=== PATIENT | male | born 1955 | race Caucasian/White ===

== ENCOUNTER → 2018-05-12 07:45 | Outpatient (CLI) | payer BC, SELFPAY | DX: N17.9 Acute kidney failure, unspecified (principal) | CPT/HCPCS: 76770 ==

== ENCOUNTER 2018-11-13 09:01 | Inpatient (IN) | payer MEDICARE, BC, SELFPAY ==
[2018-11-13 09:04] VITALS: BP 188/85; RESP 71; TEMP 36.5; O2SAT 18; BMI 48.9
[2018-11-13 09:45] LABS: Absolute Lymphocyte Count 0.76 X10^3/ul (0.83-4.51); Basophil# 0.08 X10^3/uL; Basophil% 0.8 % (0-1); Eosinophil# 0.14 X10^3/uL; Eosinophils% 1.4 % (0-5); Hematocrit 34.5 % (40-54); Lymphocyte # 0.76 X10^3/ul (4.0); Lymphocyte % 7.6 % (19-41); Mean Corp Hgb Conc 31.9 g/gl (32-36); Mean Corpuscular Hgb 29.8 pg (27.0-32.0); Mean Corpuscular Volume 93.5 fL (80-94); Mean Platelet Vol. 9.5 fl (6.2-12.0); Monocyte# 0.97 X10^3/uL; Monocyte% 9.7 % (0-10); Neutrophil # 7.99 X10^3/uL (2.7-7.7); Neutrophil % 80.4 % (47-70); POSITIVE COUNT NO; POSITIVE DIFFERENTIAL NO; POSITIVE MORPHOLOGY NO; Platelet Count 368 K/mm3 (150-450); RBC Distribution Width CV 13.2 % (11.6-14.6); RBC Distribution Width SD 45.1 fl (35.1-43.9); Red Blood Count 3.69 M/mm3 (4.6-6.2)
[2018-11-13 10:00] LABS: ALB/GLOB Ratio 0.6 RATIO (0.9-2.4); AST(SGOT) 13 U/L (15-37); Alanine Aminotransfer ALT/SGPT 14 U/L (16-61); Albumin, Serum 3.1 g/dL (3.2-5.0); Alkaline Phosphatase 104 U/L (45-117); Anion Gap 7 (5-15); BUN 29 mg/dL (7-18); Calcium,Total 8.8 mg/dL (8.5-10.1); Chloride 100 mmol/L (98-107); Creatinine, Serum 1.38 mg/dL (0.70-1.30); EST Glomerular Filtration Rate 55 mL/min (>60); Est Glom Filt Rate - Afr Amer 67 mL/min (>60); Estimated Creatinine Clearance 56.84 ml/min; Globulin 4.8 g/dL (2.2-4.2); Glucose 232 mg/dL (74-106); Potassium 4.5 mmol/L (3.5-5.1); Protein, Total 7.9 g/dL (6.4-8.2); Sodium Level 133 mmol/L (136-145)
--- NOTE | 2018-11-13 10:58 | ED.VISSUMM ---
- ER Visit Summary Date of Service: 11/13/18 Chief Complaint: Lower extremity erythema History of Present Illness: The patient is a 63 M with right lower extremity pain redness and swelling. It got much worse today. He has no fever or chills no streaking. He did hit his leg while falling in the garage about 5-6 days ago. He does not know if he sustained any abrasions or lacerations at that time he does not think so. Pain is mild to moderate. He noticed erythema today. Physical Examination: Morbidly obese male with cellulitis over the lower extremity region anteriorly. There is also a 5 cm spot with induration and fluctuance. No knee involvement no ankle involvement. Emergency Department Course and Treatment: Incision and drainage was done by me, copious amounts of pus were expectorated. I made 2 incisions and connected them, patient will be admitted to the hospital with IV antibiotics. Wound cultures were obtained. Admitted in stable condition Impression: Cellulitis Abscess lower extremity This note was generated with [employer] dictation software. It may contain incorrect words, spelling, and punctuation that were not noted in review of the chart prior to signing ED Disposition - Plan for ED Patient: Referrals: [facility] Doctor,Out of [Primary Care Provider] -
--- NOTE | 2018-11-13 11:03 | ED.DCSUM_ITS ---
- ER Visit Summary Date of Service: 11/13/18 Chief Complaint: Lower extremity erythema History of Present Illness: The patient is a 63 M with right lower extremity pain redness and swelling. It got much worse today. He has no fever or chills no streaking. He did hit his leg while falling in the garage about 5-6 days ago. He does not know if he sustained any abrasions or lacerations at that time he does not think so. Pain is mild to moderate. He noticed erythema today. Physical Examination: Morbidly obese male with cellulitis over the lower extremity region anteriorly. There is also a 5 cm spot with induration and fluctuance. No knee involvement no ankle involvement. Emergency Department Course and Treatment: Incision and drainage was done by me, copious amounts of pus were expectorated. I made 2 incisions and connected them, patient will be admitted to the hospital with IV antibiotics. Wound cultures were obtained. Admitted in stable condition Impression: Cellulitis Abscess lower extremity This note was generated with [employer] dictation software. It may contain incorrect words, spelling, and punctuation that were not noted in review of the chart prior to signing ED Disposition - Plan for ED Patient: Referrals: [facility] Doctor,Out of [Primary Care Provider] -
[2018-11-13 11:08] VITALS: BP 159/88; PULSE 63; RESP 16; O2SAT 97
--- NOTE | 2018-11-13 11:22 | NURSING ---
DR KAILASH JOYNER
--- NOTE | 2018-11-13 11:28 | PCM.HP.STD ---
Problem List (1) DM type 2 (diabetes mellitus, type 2) Status: Chronic (2) Cellulitis and abscess of lower extremity Status: Acute (3) HTN (hypertension) Status: Chronic (4) HLD (hyperlipidemia) Status: Chronic History of Present Illness Date of Admission: 11/13/18 Chief Complaint: Leg cellulitis The patient is a 63 year old M with a PMH as below who presents to the hospital after development of leg abscess and cellulitis on the right. He did hit his leg in the garage about 5-6 days ago and thinks that may be where it started and he initially thought that he had a hematoma. He presented to the ER today because he noticed erythema for the first time. In the ED he was found to be afebrile without a leukocytosis, however he did have a large abscess on his right leg that did not involve any joint. The ED physician was able to incise and drain the location and obtain blood and wound cultures. Past Medical History Past Medical History (Chronic Problems): Chronic Problems DM type 2 (diabetes mellitus, type 2) (Chronic) HTN (hypertension) (Chronic) HLD (hyperlipidemia) (Chronic) Allergies Penicillins [PCN] Adverse Reaction (Verified 11/13/18 09:03) Unknown Home Medications: Ambulatory Orders Medication Instructions Recorded Ascorbic Acid [Vitamin C] 500 mg PO DAILY 11/13/18 Aspirin E.C. [Ecotrin] 81 mg PO DAILY@0800 11/13/18 Calcium Polycarbophil [Fiber Tabs] 625 mg PO 11/13/18 Carvedilol 25 mg PO BID 11/13/18 Diltiazem HCl [Diltiazem ER] 240 mg PO DAILY 11/13/18 Losartan/Hydrochlorothiazide 1 each PO DAILY 11/13/18 [Losartan-Hctz 100-12.5 mg Tab] Magnesium 250 mg PO DAILY 11/13/18 Metformin HCl [Metformin ER 1,000 mg PO BID 11/13/18 Osmotic] Multivitamin [Multiple Vitamins] 1 each PO DAILY 11/13/18 Piaglitazone 30 mg PO DAILY 11/13/18 Pravastatin [Pravachol] 20 mg PO QHS 11/13/18 Zinc 50 mg PO DAILY 11/13/18 Surgical History: - - Right foot resection Smoking Status: Never smoker Alcohol: None Drugs: None - *Family History Maternal History Items: Diabetes Paternal History Items: Heart Disease Review of Systems Constitutional: Denies: Chills, Fever, Weight Change HEENT: Denies: Head Aches, Sinus Congestion, Sinus Drainage Cardiovascular: Denies: Chest Pain, Palpitations Respiratory: Denies: Cough, Shortness of breath at rest, Sputum production Gastrointestinal: Denies: Abdominal Pain, Nausea, Vomiting Genitourinary: Denies: Dysuria Musculoskeletal: Denies: Joint Pain, Joint Tenderness Skin: Reports: Skin Changes, Wounds. Denies: Rash Neurological: Denies: Numbness, Tingling, Focal weakness Psychiatric: Denies: Anxiety, Depression, Homicidal Ideations, Suicidal Ideations Hematologic/ Lymphatic: Denies: Easy Bruising, Easy Bleeding VTE Information - Inpt Only VTE Present on Admission: No Patient Problems: Active and Suspected Problems Cellulitis and abscess of lower extremity (Acute) - Physical Exam General: Alert, Oriented x3, Cooperative, No apparent distress HEENT: Atraumatic, PERRLA, EOMI, Normocephalic Neck: Supple, No JVD, Trachea Midline Lungs: Clear to auscultation, Normal air movement, No rhonchi, No wheeze, No rales Cardiovascular: Regular rate, Regular Rhythm, Normal S1, Normal S2, No murmurs Abdomen: Soft, Non Tender, Non-Distended, No Hepato-splenomegaly, Obese Extremities: No edema, Capillary Refill Less than 3 Seconds Skin: - - Cellulitis of the anterior aspect of his right lower extremity, there is a site of drainage from the ER with a rubber tie to hold the wound open to allow for drainage Neurological: Neuro grossly intact, Sensory exam intact to light touch and pain Psych/Mental Status: Normal Affect, Appropriate Vital Signs Temp Pulse Resp BP Pulse Ox 97.7 F L 63 16 159/88 H 97 11/13/18 09:04 11/13/18 11:08 11/13/18 11:08 11/13/18 11:08 11/13/18 11:08 Oxygen Delivery Method Room Air Weight: 350 lb 12.087 oz Body Mass Index (BMI) 48.9 Laboratory Tests Past 24 Hrs 11/13/18 11/13/18 09:30 09:30 WBC 10.0 RBC 3.69 L Hgb 11.0 L Hct 34.5 L MCV 93.5 MCH 29.8 MCHC 31.9 L RDW 13.2 RDW Differential 45.1 H Plt Count 368 MPV 9.5 Immature Gran % (Auto) 0.100 Neut % (Auto) 80.4 H Lymph % (Auto) 7.6 L Frederick % (Auto) 9.7 Eos % (Auto) 1.4 Baso % (Auto) 0.8 Absolute Neuts (auto) 8.0 H Absolute Lymphs (auto) 0.76 L Total Counted Not Reportable Sodium 133 L Potassium 4.5 Chloride 100 Carbon Dioxide 26.0 Anion Gap 7 BUN 29 H Creatinine 1.38 H Estim Creat Clear Calc 56.84 Est GFR (MDRD) Af Amer 67 Est GFR (MDRD) Non-Af 55 L BUN/Creatinine Ratio 21.0 H Glucose 232 H Calcium 8.8 Total Bilirubin 0.40 AST 13 L ALT 14 L Alkaline Phosphatase 104 Total Protein 7.9 Albumin 3.1 L Globulin 4.8 H Albumin/Globulin Ratio 0.6 L Assessment/Plan All Active Problems Cellulitis and abscess of lower extremity (Acute) 1. Right lower extremity cellulitis with an abscess -Concern for possible MRSA given the fact that there is an abscess -We will await cultures in the meantime initiate doxycycline twice daily to cover both MRSA and strep -Wound care to evaluate patient in the morning 2. DM 2/acute kidney injury -Is on metformin at home which we will hold -Will start with sliding scale insulin and Accu-Cheks -Current creatinine is 1.38, unsure of baseline as his previous creatinine was 1.17, 2 years ago -P.o. intake no IV fluids at the moment 3. HTN/HLD/A. fib status post cardioversion -Currently stable -Continue with home medications -He does have a history of A. fib though he is not on any anticoagulation after he was cardioverted in 2013 DVT: Lovenox and SCDs Code Visit OBSV E&M: 93879 Initial observation care L3
--- NOTE | 2018-11-13 11:29 | NURSING ---
MED SURG CELLULITIS KOTSONIS
[2018-11-13 12:01] VITALS: BMI 48.1
[2018-11-13 12:19] VITALS: BMI 48.2
[2018-11-13 12:31] VITALS: BP 161/84; PULSE 70; RESP 18; TEMP 36.6; O2SAT 99
[2018-11-13 17:02] VITALS: BP 162/88; PULSE 70; RESP 16; TEMP 36.7; O2SAT 99
[2018-11-13] MEDS: Insulin Lispro 100 UNIT/ML INSULN.PEN SQ ×2 (17:06→22:11)
[2018-11-13 17:15] LABS: Bedside Glucose 188 mg/dL (70-110)
[2018-11-13 20:12] VITALS: BP 160/76; PULSE 67; RESP 16; TEMP 36.7; O2SAT 99
[2018-11-13] MEDS: Doxycycline 100 MG CAPSULE PO (22:06)
[2018-11-13] MEDS: Carvedilol 25 MG Tablet PO (22:06)
[2018-11-13] MEDS: Pravastatin 20 MG Tablet PO (22:06)
[2018-11-13 22:51] LABS: Bedside Glucose 151 mg/dL (70-110)
[2018-11-14 03:05] VITALS: BP 137/75; PULSE 63; RESP 12; TEMP 36.4; O2SAT 99
[2018-11-14 06:01] LABS: Absolute Lymphocyte Count 1.04 X10^3/ul (0.83-4.51); Absolute Neutrophil Count 4.8 X10^3/uL (2.0-7.7); Basophil# 0.04 X10^3/uL; Basophil% 0.6 % (0-1); Eosinophil# 0.24 X10^3/uL; Eosinophils% 3.4 % (0-5); Hematocrit 32.1 % (40-54); Hemoglobin 10.2 g/dl (13.0-16.5); Lymphocyte # 1.04 X10^3/ul (4.0); Lymphocyte % 14.8 % (19-41); Mean Corp Hgb Conc 31.8 g/gl (32-36); Mean Corpuscular Hgb 29.7 pg (27.0-32.0); Mean Corpuscular Volume 93.6 fL (80-94); Mean Platelet Vol. 9.4 fl (6.2-12.0); Monocyte# 0.91 X10^3/uL; Monocyte% 12.9 % (0-10); Neutrophil # 4.79 X10^3/uL (2.7-7.7); Platelet Count 352 K/mm3 (150-450); RBC Distribution Width CV 13.3 % (11.6-14.6); RBC Distribution Width SD 45.4 fl (35.1-43.9); Red Blood Count 3.43 M/mm3 (4.6-6.2)
[2018-11-14] MEDS: Insulin Lispro 100 UNIT/ML INSULN.PEN SQ ×2 (06:03→12:06)
[2018-11-14 06:09] LABS: POSITIVE DIFFERENTIAL NO
[2018-11-14 06:17] LABS: Anion Gap 9 (5-15); BUN 25 mg/dL (7-18); BUN/Creat Ratio 19.7 RATIO (10-20); Calcium,Total 8.7 mg/dL (8.5-10.1); Chloride 105 mmol/L (98-107); Creatinine, Serum 1.27 mg/dL (0.70-1.30); EST Glomerular Filtration Rate 61 mL/min (>60); Est Glom Filt Rate - Afr Amer 73 mL/min (>60); Estimated Creatinine Clearance 61.76 ml/min; Glucose 165 mg/dL (74-106); Potassium 4.6 mmol/L (3.5-5.1); Sodium Level 141 mmol/L (136-145)
[2018-11-14 06:37] LABS: POSITIVE COUNT NO; POSITIVE MORPHOLOGY NO
--- NOTE | 2018-11-14 09:19 | NURSING ---
wound photo: right plantar foot
--- NOTE | 2018-11-14 09:20 | NURSING ---
wound photo: right knee
[2018-11-14 10:48] VITALS: BP 156/76; PULSE 70; RESP 18; TEMP 36.8; O2SAT 96
[2018-11-14] MEDS: hydroCHLOROthiazide 12.5mg 12.5 MG PO (10:50)
[2018-11-14] MEDS: Carvedilol 25 MG Tablet PO ×2 (10:50→22:29)
[2018-11-14] MEDS: Magnesium Oxide 400 MG Tablet PO (10:50)
[2018-11-14] MEDS: Enoxaparin 40 MG/0.4 ML Syringe SC (10:51)
[2018-11-14] MEDS: Ascorbic Acid 500 MG Tablet PO (10:51)
[2018-11-14] MEDS: Aspirin E.C. 81 MG Tablet PO (10:51)
[2018-11-14] MEDS: Losartan Potassium 100 MG Tablet PO (10:51)
[2018-11-14] MEDS: dilTIAZem CD 240 MG Capsule PO (10:51)
[2018-11-14] MEDS: 0.9% NaCl IVPB Med Flush (250 mL) 15 ML IV (10:52)
[2018-11-14] MEDS: 0.9% NaCl Peripheral Flush Adult/Peds IV (10:52)
--- NOTE | 2018-11-14 11:15 | CASEMGMT ---
RN CISCO Face to Face with patient for initial transition planning/care coordination assessment. RN CM introduced self and role at [facility]. Patient lying in bed, alert and oriented, father at bedside. Patient willing to participate in assessment and is able to answer all questions appropriately. Care providers, pharmacy, and demographics verified. Patient wishes to discharge home, denies need for home health at this time. Patient states he has no further needs or concerns at this time. CM to follow for discharge planning needs that may arise. PCP: Catracho Colbert Specialists: Jacobo podsyed Preferred Pharmacy: [facility] Insurance: Nils FONTENOT Prescription Benefit: [place] Living Will/HPOA: None LNOK: Father Living Arrangements: Patient lives alone in his Condo, independent at home. Transportation: self DME/HHC: Patient states he has cane. Denies home oxygen, bipap, cpap, nebulizer. Patient denies previous HHC or SNF Disposition Plan: Patient to discharge home with family support and follow-up plans in place. Coco NIELSENN, RN, CM
[2018-11-14 11:36] LABS: Bedside Glucose 155 mg/dL (70-110)
--- NOTE | 2018-11-14 11:46 | PCM.PN.HOSP ---
Patient Problems: Active and Suspected Problems Cellulitis and abscess of lower extremity (Acute) Subjective: Patient is a 63-year-old gentleman with past medical history cigar for diabetes mellitus type 2 presenting with redness and swelling involving the right lower leg. An assessment of cellulitis with abscess made. Patient had incision and drainage performed in the emergency department cultures sent and patient admitted to regular nursing floor for further management Objective: GENERAL: cooperative HEENT: Atraumatic; moist oral mucosa EYES; Anicteric, Normal Conjunctiva NECK; supple, normal thyroid, no distended JVD. RESPIRATORY: Diminished to auscultation bilaterally, CARDIOVASCULAR: Regular S1 S2, no audible murmurs GI: soft, non-tender, normoactive bowel sounds, : No Renal angle tenderness; EXTREMITIES: Area of induration below the right knee with surrounding areas of erythema MUSCULOSKELETAL: No Joint Tenderness; no muscle waisting NEURO: Awake; no lateralizing signs. SKIN: As described above PSYCH; Normal affect Vitals/I&O's: Vital Signs Temp Pulse Resp BP Pulse Ox 98.3 F 70 18 156/76 H 96 11/14/18 10:48 11/14/18 10:48 11/14/18 10:48 11/14/18 10:48 11/14/18 10:48 Oxygen Delivery Method Room Air Weight: 156.6 kg Body Mass Index (BMI) 48.1 Intake and Output for Last 24 Hours 11/12/18 11/13/18 11/14/18 22:59 23:59 23:59 Intake Total 500 / 500 Output Total 1225 / 1225 Balance -725 / -725 Microbiology Past 72 Hours 11/13/18 10:07 Tissue - Knee Gram Stain - Final 11/13/18 10:07 Tissue - Knee Wound Culture - Preliminary GNR lactose nurse first aid Laboratory Results 11/13/18 16:58: POC Glucose 188 H 11/13/18 22:10: POC Glucose 151 H 11/14/18 05:40: WBC 7.0, RBC 3.43 L, Hgb 10.2 L, Hct 32.1 L, MCV 93.6, MCH 29.7, MCHC 31.8 L, RDW 13.3, RDW Differential 45.4 H, Plt Count 352, MPV 9.4, Immature Gran % (Auto) 0.300, Neut % (Auto) 68.0, Lymph % (Auto) 14.8 L, Iron % (Auto) 12.9 H, Eos % (Auto) 3.4, Baso % (Auto) 0.6, Absolute Neuts (auto) 4.8, Absolute Lymphs (auto) 1.04, Total Counted Not Reportable 11/14/18 05:40: Sodium 141, Potassium 4.6, Chloride 105, Carbon Dioxide 27.0, Anion Gap 9, BUN 25 H, Creatinine 1.27, Estim Creat Clear Calc 61.76, Est GFR (MDRD) Af Amer 73, Est GFR (MDRD) Non-Af 61, BUN/Creatinine Ratio 19.7, Glucose 165 H, Calcium 8.7 11/14/18 06:02: POC Glucose 155 H 11/14/18 08:45: S.aureus Protein A PCR Pending, MRSA (PCR) Pending Current Medications Ascorbic Acid (Vitamin C) 500 mg PO DAILY [facility] Last Admin: 11/14/18 10:51 Dose: 500 mg Aspirin (Ecotrin) 81 mg PO DAILY@0800 [facility] Last Admin: 11/14/18 10:51 Dose: 81 mg Carvedilol (Coreg) 25 mg PO BID [facility] Last Admin: 11/14/18 10:50 Dose: 25 mg Dextrose (D50w Syringe) 0 gm IV X1 PRN; Protocol PRN Reason: Hypoglycemia Diltiazem HCl (Cardizem Cd) 240 mg PO DAILY [facility] Last Admin: 11/14/18 10:51 Dose: 240 mg Enoxaparin Sodium (Lovenox) 40 mg SC DAILY@1000 [facility] Last Admin: 11/14/18 10:51 Dose: 40 mg Glucagon () 1 mg IM .X1 PRN PRN Reason: Hypoglycemia Hydrochlorothiazide () 12.5 mg PO DAILY [facility] Last Admin: 11/14/18 10:50 Dose: 12.5 mg Ceftriaxone Sodium 1 gm/ N/A 50 mls @ 100 mls/hr IV Q24 [facility] Last Admin: 11/14/18 10:52 Dose: 100 mls/hr Sodium Chloride () 250 mls @ 15 mls/hr IV .[id number] PRN PRN Reason: SALINE FLUSH Last Admin: 11/14/18 10:52 Dose: 15 mls/hr Insulin Human Lispro (Humalog Kwikpen (Bkc)) 0 unit SQ ACHS [facility]; Protocol Last Admin: 11/14/18 06:03 Dose: 2 u Losartan Potassium (Cozaar) 100 mg PO DAILY [facility] Last Admin: 11/14/18 10:51 Dose: 100 mg Magnesium Hydroxide (Milk Of Magnesia) 30 ml PO DAILY PRN PRN PRN Reason: Constipation Magnesium Oxide (Mag-Ox 400) 400 mg PO DAILYCM [facility] Last Admin: 11/14/18 10:50 Dose: 400 mg Pravastatin Sodium (Pravachol) 20 mg PO QHS [facility] Last Admin: 11/13/18 22:06 Dose: 20 mg Sodium Chloride () 5 - 15 ml IV UD PRN PRN Reason: SALINE FLUSH Last Admin: 11/14/18 10:52 Dose: 10 ml Medical Necessity - Tobacco Use Smoking Status: Never smoker Assessment/Plan All Active Problems Cellulitis and abscess of lower extremity (Acute) Patient is a 63-year-old gentleman with past medical history cigar for diabetes mellitus type 2 presenting with redness and swelling involving the right lower leg. An assessment of cellulitis with abscess made. Patient had incision and drainage performed in the emergency department cultures sent and patient admitted to regular nursing floor for further management 1. Right lower extremity cellulitis with abscess: Patient admitted to regular nursing floor was started on doxycycline and switched to Rocephin. Wound cultures so far positive for gram-negative rods. A rapid MRSA screen was ordered. Consultation placed to infectious disease 2. Acute renal insufficiency present on admission managed with IV fluids resolved 3. Diabetes on oral home meds held placed on long-acting insulin with sliding scale coverage 4. Hypertension-blood pressure controlled, home medications continued with dose adjustment as needed 5. Paroxysmal A. fib with previous cardioversion 6. Dyslipidemia-patient is on statin therapy, continued at home dose 7. Morbid obesity with BMI of 48.2 weight loss advised 9. 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 DVT: Lovenox Active Medications Ascorbic Acid (Vitamin C) 500 mg PO DAILY [facility] Last Admin: 11/14/18 10:51 Dose: 500 mg Aspirin (Ecotrin) 81 mg PO DAILY@0800 [facility] Last Admin: 11/14/18 10:51 Dose: 81 mg Carvedilol (Coreg) 25 mg PO BID [facility] Last Admin: 11/14/18 10:50 Dose: 25 mg Dextrose (D50w Syringe) 0 gm IV X1 PRN; Protocol PRN Reason: Hypoglycemia Diltiazem HCl (Cardizem Cd) 240 mg PO DAILY [facility] Last Admin: 11/14/18 10:51 Dose: 240 mg Enoxaparin Sodium (Lovenox) 40 mg SC DAILY@1000 [facility] Last Admin: 11/14/18 10:51 Dose: 40 mg Glucagon () 1 mg IM .X1 PRN PRN Reason: Hypoglycemia Hydrochlorothiazide () 12.5 mg PO DAILY [facility] Last Admin: 11/14/18 10:50 Dose: 12.5 mg Ceftriaxone Sodium 1 gm/ N/A 50 mls @ 100 mls/hr IV Q24 [facility] Last Admin: 11/14/18 10:52 Dose: 100 mls/hr Sodium Chloride () 250 mls @ 15 mls/hr IV .[id number] PRN PRN Reason: SALINE FLUSH Last Admin: 11/14/18 10:52 Dose: 15 mls/hr Insulin Human Lispro (Humalog Kwikpen (Bkc)) 0 unit SQ ACHS [facility]; Protocol Last Admin: 11/14/18 06:03 Dose: 2 u Losartan Potassium (Cozaar) 100 mg PO DAILY [facility] Last Admin: 11/14/18 10:51 Dose: 100 mg Magnesium Hydroxide (Milk Of Magnesia) 30 ml PO DAILY PRN PRN PRN Reason: Constipation [facility]Ox 400[facility] Admin: 11/14/18 10:50 Dose: 400 mg Pravastatin Sodium (Pravachol) 20 mg PO QHS [facility] Last Admin: 11/13/18 22:06 Dose: 20 mg Sodium Chloride () 5 - 15 ml IV UD PRN PRN Reason: SALINE FLUSH Last Admin: 11/14/18 10:52 Dose: 10 ml Code Visit Inpatient E&M: 24282 Subs Hosp L2
--- NOTE | 2018-11-14 11:50 | PN_ITS ---
Patient Problems: Active and Suspected Problems Cellulitis and abscess of lower extremity (Acute) Subjective: Patient is a 63-year-old gentleman with past medical history cigar for diabetes mellitus type 2 presenting with redness and swelling involving the right lower leg. An assessment of cellulitis with abscess made. Patient had incision and drainage performed in the emergency department cultures sent and patient admitted to regular nursing floor for further management Objective: GENERAL: cooperative HEENT: Atraumatic; moist oral mucosa EYES; Anicteric, Normal Conjunctiva NECK; supple, normal thyroid, no distended JVD. RESPIRATORY: Diminished to auscultation bilaterally, CARDIOVASCULAR: Regular S1 S2, no audible murmurs GI: soft, non-tender, normoactive bowel sounds, : No Renal angle tenderness; EXTREMITIES: Area of induration below the right knee with surrounding areas of erythema MUSCULOSKELETAL: No Joint Tenderness; no muscle waisting NEURO: Awake; no lateralizing signs. SKIN: As described above PSYCH; Normal affect Vitals/I&O's: Vital Signs Temp Pulse Resp BP Pulse Ox 98.3 F 70 18 156/76 H 96 11/14/18 10:48 11/14/18 10:48 11/14/18 10:48 11/14/18 10:48 11/14/18 10:48 Oxygen Delivery Method Room Air Weight: 156.6 kg Body Mass Index (BMI) 48.1 Intake and Output for Last 24 Hours 11/12/18 11/13/18 11/14/18 22:59 23:59 23:59 Intake Total 500 / 500 Output Total 1225 / 1225 Balance -725 / -725 Microbiology Past 72 Hours 11/13/18 10:07 Tissue - Knee Gram Stain - Final 11/13/18 10:07 Tissue - Knee Wound Culture - Preliminary GNR lactose restaurant managing partner Laboratory Results 11/13/18 16:58: POC Glucose 188 H 11/13/18 22:10: POC Glucose 151 H 11/14/18 05:40: WBC 7.0, RBC 3.43 L, Hgb 10.2 L, Hct 32.1 L, MCV 93.6, MCH 29.7, MCHC 31.8 L, RDW 13.3, RDW Differential 45.4 H, Plt Count 352, MPV 9.4, Immature Gran % (Auto) 0.300, Neut % (Auto) 68.0, Lymph % (Auto) 14.8 L, [place] % (Auto) 12.9 H, Eos % (Auto) 3.4, Baso % (Auto) 0.6, Absolute Neuts (auto) 4.8, Absolute Lymphs (auto) 1.04, Total Counted Not Reportable 11/14/18 05:40: Sodium 141, Potassium 4.6, Chloride 105, Carbon Dioxide 27.0, Anion Gap 9, BUN 25 H, Creatinine 1.27, Estim Creat Clear Calc 61.76, Est GFR (MDRD) Af Amer 73, Est GFR (MDRD) Non-Af 61, BUN/Creatinine Ratio 19.7, Glucose 165 H, Calcium 8.7 11/14/18 06:02: POC Glucose 155 H 11/14/18 08:45: S.aureus Protein A PCR Pending, MRSA (PCR) Pending Current Medications Ascorbic Acid (Vitamin C) 500 mg PO DAILY [facility] Last Admin: 11/14/18 10:51 Dose: 500 mg Aspirin (Ecotrin) 81 mg PO DAILY@0800 [facility] Last Admin: 11/14/18 10:51 Dose: 81 mg Carvedilol (Coreg) 25 mg PO BID [facility] Last Admin: 11/14/18 10:50 Dose: 25 mg Dextrose (D50w Syringe) 0 gm IV X1 PRN; Protocol PRN Reason: Hypoglycemia Diltiazem HCl (Cardizem Cd) 240 mg PO DAILY [facility] Last Admin: 11/14/18 10:51 Dose: 240 mg Enoxaparin Sodium (Lovenox) 40 mg SC DAILY@1000 [facility] Last Admin: 11/14/18 10:51 Dose: 40 mg Glucagon () 1 mg IM .X1 PRN PRN Reason: Hypoglycemia Hydrochlorothiazide () 12.5 mg PO DAILY [facility] Last Admin: 11/14/18 10:50 Dose: 12.5 mg Ceftriaxone Sodium 1 gm/ N/A 50 mls @ 100 mls/hr IV Q24 [facility] Last Admin: 11/14/18 10:52 Dose: 100 mls/hr Sodium Chloride () 250 mls @ 15 mls/hr IV .[id number] PRN PRN Reason: SALINE FLUSH Last Admin: 11/14/18 10:52 Dose: 15 mls/hr Insulin Human Lispro (Humalog Kwikpen (Bkc)) 0 unit SQ ACHS [facility]; Protocol Last Admin: 11/14/18 06:03 Dose: 2 u Losartan Potassium (Cozaar) 100 mg PO DAILY [facility] Last Admin: 11/14/18 10:51 Dose: 100 mg Magnesium Hydroxide (Milk Of Magnesia) 30 ml PO DAILY PRN PRN PRN Reason: Constipation Magnesium Oxide (Mag-Ox 400) 400 mg PO DAILYCM [facility] Last Admin: 11/14/18 10:50 Dose: 400 mg Pravastatin Sodium (Pravachol) 20 mg PO QHS [facility] Last Admin: 11/13/18 22:06 Dose: 20 mg Sodium Chloride () 5 - 15 ml IV UD PRN PRN Reason: SALINE FLUSH Last Admin: 11/14/18 10:52 Dose: 10 ml Medical Necessity - Tobacco Use Smoking Status: Never smoker Assessment/Plan All Active Problems Cellulitis and abscess of lower extremity (Acute) Patient is a 63-year-old gentleman with past medical history cigar for diabetes mellitus type 2 presenting with redness and swelling involving the right lower leg. An assessment of cellulitis with abscess made. Patient had incision and drainage performed in the emergency department cultures sent and patient a dmitted to regular nursing floor for further management 1. Right lower extremity cellulitis with abscess: Patient admitted to regular nursing floor was started on doxycycline and switched to Rocephin. Wound cultures so far positive for gram-negative rods. A rapid MRSA screen was ordered. Consultation placed to infectious disease 2. Acute renal insufficiency present on admission managed with IV fluids resolved 3. Diabetes on oral home meds held placed on long-acting insulin with sliding scale coverage 4. Hypertension-blood pressure controlled, home medications continued with dose adjustment as needed 5. Paroxysmal A. fib with previous cardioversion 6. Dyslipidemia-patient is on statin therapy, continued at home dose 7. Morbid obesity with BMI of 48.2 weight loss advised 9. 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 DVT: Lovenox Active Medications Ascorbic Acid (Vitamin C) 500 mg PO DAILY [facility] Last Admin: 11/14/18 10:51 Dose: 500 mg Aspirin (Ecotrin) 81 mg PO DAILY@0800 [facility] Last Admin: 11/14/18 10:51 Dose: 81 mg Carvedilol (Coreg) 25 mg PO BID [facility] Last Admin: 11/14/18 10:50 Dose: 25 mg Dextrose (D50w Syringe) 0 gm IV X1 PRN; Protocol PRN Reason: Hypoglycemia Diltiazem HCl (Cardizem Cd) 240 mg PO DAILY [facility] Last Admin: 11/14/18 10:51 Dose: 240 mg Enoxaparin Sodium (Lovenox) 40 mg SC DAILY@1000 [facility] Last Admin: 11/14/18 10:51 Dose: 40 mg Glucagon () 1 mg IM .X1 PRN PRN Reason: Hypoglycemia Hydrochlorothiazide () 12.5 mg PO DAILY [facility] Last Admin: 11/14/18 10:50 Dose: 12.5 mg Ceftriaxone Sodium 1 gm/ N/A 50 mls @ 100 mls/hr IV Q24 [facility] Last Admin: 11/14/18 10:52 Dose: 100 mls/hr Sodium Chloride () 250 mls @ 15 mls/hr IV .[id number] PRN PRN Reason: SALINE FLUSH Last Admin: 11/14/18 10:52 Dose: 15 mls/hr Insulin Human Lispro (Humalog Kwikpen (Bkc)) 0 unit SQ ACHS [facility]; Protocol Last Admin: 11/14/18 06:03 Dose: 2 u Losartan Potassium (Cozaar) 100 mg PO DAILY [facility] Last Admin: 11/14/18 10:51 Dose: 100 mg Magnesium Hydroxide (Milk Of Magnesia) 30 ml PO DAILY PRN PRN PRN Reason: Constipation [facility] ([facility]Ox 400) [facility] Admin: 11/14/18 10:50 Dose: 400 mg Pravastatin Sodium (Pravachol) 20 mg PO QHS [facility] Last Admin: 11/13/18 22:06 Dose: 20 mg Sodium Chloride () 5 - 15 ml IV UD PRN PRN Reason: SALINE FLUSH Last Admin: 11/14/18 10:52 Dose: 10 ml Code Visit Inpatient E&M: 39358 Subs Hosp L2
[2018-11-14 11:51] LABS: M R Staph aureus DNA By PCR Negative (Negative); Probe Check PASS; Specimen Processing Control PASS; Staph aureus DNA By PCR NEGATIVE (Negative)
[2018-11-14 12:15] LABS: Bedside Glucose 203 mg/dL (70-110)
[2018-11-14 15:15] VITALS: BP 153/76; PULSE 71; RESP 18; TEMP 36.9; O2SAT 96
--- NOTE | 2018-11-14 15:36 | CHAPLAIN ---
Type of Pastoral Visit _x__ Initial Visit ___ Follow-up Visit ___ On-call Visit ___ General Patient Visit ___ Spiritual Assessment ___ Family Conference ___ Bereavement ___ Rapid Response ___ Code Blue ___ Other (describe below) Pastoral Care Referral From _x__ Patient ___ Family ___ Nurse ___ Physician ___ Vp Client Services ___ Chef Assistant ___ Other (describe below) Sacrament/Intervention _x__ Active listening ___ Anointing ___ Bahai ___ Bereavement ___ Communion _x__ Fany exploration ___ _x__ Life review _x__ Prayer ___ Reconciliation ___ Sacrament of Sick _x__ Supportive presence ___ Wedding ___ Other (describe below) Pastoral Comments patient is very welcoming and talkative with cloth boil off machine operator; pt asks many questions about fany/mandaeism practices/after-life/meaning to life etc.; pt has never and has limited support system; main support is from 93 year old father; pt welcomes prayer and any future support from this cloth boil off machine operator as long as he is admitted
--- NOTE | 2018-11-14 16:31 | CON.PCM_ITS ---
Problem List (1) Cellulitis and abscess of lower extremity Status: Acute Reason for Consult: leg abscess Consulted by: Peter History of Present Illness: The patient is a 63 year old M who presented with one week of progressive anterior R knee moderate pain, swelling, redness. No drainage. Had hit his knee around time sx started. Developed some fever and chills. Came to ED, drainage done, now on ceftriaxone. Sx much improved. Full ROS performed and neg except as noted - Medical History Past Medical History (Chronic Problems): Chronic Problems DM type 2 (diabetes mellitus, type 2) (Chronic) HTN (hypertension) (Chronic) HLD (hyperlipidemia) (Chronic) Allergies/Adverse Reactions: Allergies Penicillins [PCN] Adverse Reaction (Verified 11/13/18 09:03) Unknown Home Medications: Ambulatory Orders Medication Instructions Recorded Ascorbic Acid [Vitamin C] 500 mg PO DAILY 11/13/18 Aspirin E.C. [Ecotrin] 81 mg PO DAILY@0800 11/13/18 Calcium Polycarbophil [Fiber Tabs] 625 mg PO 11/13/18 Carvedilol 25 mg PO BID 11/13/18 Diltiazem HCl [Diltiazem ER] 240 mg PO DAILY 11/13/18 Losartan/Hydrochlorothiazide 1 each PO DAILY 11/13/18 [Losartan-Hctz 100-12.5 mg Tab] Magnesium 250 mg PO DAILY 11/13/18 Metformin HCl [Metformin ER 1,000 mg PO BID 11/13/18 Osmotic] Multivitamin [Multiple Vitamins] 1 each PO DAILY 11/13/18 Piaglitazone 30 mg PO DAILY 11/13/18 Pravastatin [Pravachol] 20 mg PO QHS 11/13/18 Zinc 50 mg PO DAILY 11/13/18 - Social History SMOKING STATUS:: Never smoker Vital Signs Temp Pulse Resp BP Pulse Ox 98.4 F 71 18 153/76 H 96 11/14/18 15:15 11/14/18 15:15 11/14/18 15:15 11/14/18 15:15 11/14/18 15:15 Oxygen Delivery Method Room Air Weight: 156.6 kg Body Mass Index (BMI) 48.1 Microbiology Past 72 Hours 11/13/18 10:07 Gram Stain - Final Tissue - Knee Wound Culture - Preliminary GNR lactose roller staker Laboratory Tests Past 24 Hrs 11/14/18 11/14/1819 05:40 05:40 08:45 WBC 7.0 RBC 3.43 L Hgb 10.2 L Hct 32.1 L MCV 93.6 MCH 29.7 MCHC 31.8 L RDW 13.3 RDW Differential 45.4 H Plt Count 352 MPV 9.4 Immature Gran % (Auto) 0.300 Neut % (Auto) 68.0 Lymph % (Auto) 14.8 L [place] % (Auto) 12.9 H Eos % (Auto) 3.4 Baso % (Auto) 0.6 Absolute Neuts (auto) 4.8 Absolute Lymphs (auto) 1.04 Total Counted Not Reportable Sodium 141 Potassium 4.6 Chloride 105 Carbon Dioxide 27.0 Anion Gap 9 BUN 25 H Creatinine 1.27 Estim Creat Clear Calc 61.76 Est GFR (MDRD) Af Amer 73 Est GFR (MDRD) Non-Af 61 BUN/Creatinine Ratio 19.7 Glucose 165 H Calcium 8.7 S.aureus Protein A PCR NEGATIVE MRSA (PCR) Negative - Other Studies Radiology: [] reviewed Other Studies: [] Route of nutrition/ use of supplements: [] Nutritional Intake: [] IV Site: [] Lopez Catheter: [] - Physical Exam General: Alert, Oriented x3, Cooperative, No apparent distress HEENT: Atraumatic, PERRLA, EOMI Neck: Supple, No Nodes Lungs: Clear to auscultation, Normal air movement Cardiovascular: Regular rate, Regular Rhythm, No murmurs Abdomen: Non Tender, Non-Distended Extremities: Edema Skin: Ulcer/ Wound - R knee anterior wound IV Site: Peripheral, without redness Musculoskeletal: No Tenderness to Palpation of Joints or Extremities Neurological: Cranial nerves II-XII grossly intact - Assessment/Plan Antibiotics: [] Assessment/Plan: [] Active and Suspected Problems Cellulitis and abscess of lower extremity (Acute) R anterior knee abscess - cx with GNR. Cont ceftriaxone, sx much improved. Plan on home on po abx tomorrow for one more week of therapy with PCP followup. Will follow, thank you, d/w pillowcase cutter.
[2018-11-14 17:05] LABS: Bedside Glucose 137 mg/dL (70-110)
[2018-11-14] MEDS: Acetaminophen 325 MG Tablet 650 MG PO (18:57)
[2018-11-14 20:44] VITALS: BP 138/82; PULSE 69; RESP 16; TEMP 36.4; O2SAT 96
[2018-11-14] MEDS: Pravastatin 20 MG Tablet PO (22:29)
[2018-11-14] MEDS: MELATONIN 10 MG TABLET PO (22:29)
[2018-11-14 22:36] LABS: Bedside Glucose 143 mg/dL (70-110)
[2018-11-15 02:24] VITALS: BP 134/76; PULSE 58; RESP 16; TEMP 36.5; O2SAT 97
[2018-11-15] MEDS: Insulin Lispro 100 UNIT/ML INSULN.PEN SQ (06:22)
[2018-11-15] MEDS: 0.9% NaCl Peripheral Flush Adult/Peds IV (06:26)
[2018-11-15 06:40] LABS: Bedside Glucose 163 mg/dL (70-110)
[2018-11-15 07:53] VITALS: BP 133/74; PULSE 66; RESP 18; TEMP 36.6; O2SAT 97
[2018-11-15] MEDS: Aspirin E.C. 81 MG Tablet PO (08:06)
[2018-11-15] MEDS: Magnesium Oxide 400 MG Tablet PO (08:06)
--- NOTE | 2018-11-15 08:47 | DCINST_ITS ---
- Discharge Diagnoses Current Active Problems: Current Active and Chronic Problems DM type 2 (diabetes mellitus, type 2) (Chronic) Cellulitis and abscess of lower extremity (Acute) HTN (hypertension) (Chronic) HLD (hyperlipidemia) (Chronic) You will use the following diet at home:: Calorie/Carbohydrate Controlled (spe cify 1200, 1400, etc) - 1800 Your food should be the consistency of: Regular Discharge Activity: Return to Normal Activity Allergies/Adverse Reactions: Allergies Penicillins [PCN] Adverse Reaction (Verified 11/13/18 09:03) Unknown Medications to take at Discharge Ascorbic Acid [Vitamin C] 500 mg PO DAILY 11/13/18 Aspirin E.C. [Ecotrin] 81 mg PO DAILY@0800 11/13/18 Calcium Polycarbophil [Fiber Tabs] 625 mg PO 11/13/18 Carvedilol 25 mg PO BID 11/13/18 Diltiazem HCl [Diltiazem 24Hr ER] 240 mg PO DAILY 11/13/18 Losartan/Hydrochlorothiazide [Losartan-Hctz 100-12.5 mg Tab] 1 each PO DAILY 11/13/18 Magnesium 250 mg PO DAILY 11/13/18 Metformin HCl [Metformin ER Osmotic] 1,000 mg PO BID 11/13/18 Multivitamin [Multiple Vitamins] 1 each PO DAILY 11/13/18 Piaglitazone 30 mg PO DAILY 11/13/18 Pravastatin [Pravachol] 20 mg PO QHS 11/13/18 Zinc 50 mg PO DAILY 11/13/18 Ciprofloxacin [Cipro] 500 mg PO BID #10 tablet 11/15/18 The following prescriptions were given: Ciprofloxacin [Cipro] 500 mg PO BID #10 tablet Primary Care Physician: Francisco Duran,Out of [Primary Care Provider] - Please follow up with your Primary Care Physician in: in 5-7 days Test Results: Test results from this visit will be discussed in further detail at your follow- up appointment, if applicable. Proposed Discharge Date: 11/15/18
--- NOTE | 2018-11-15 08:51 | DS.PCM_ITS ---
Discharge Date and Diagnosis - Problem List Patient Problems: Active and Suspected Problems Cellulitis and abscess of lower extremity (Acute) Date of Admission: 11/13/18 Date of Discharge: 11/15/18 - Primary Discharge Diagnosis Active and Suspected Problems Cellulitis and abscess of lower extremity (Acute) - Secondary Discharge Diagnosis Chronic Problems DM type 2 (diabetes mellitus, type 2) (Chronic) HTN (hypertension) (Chronic) HLD (hyperlipidemia) (Chronic) Hospital Course and Treatment Consultations 11/13/18 12:59 Consult: Onc/Wound/machine cloth examiner Routine Comment: Summary of Care Provided: Patient is a 63-year-old gentleman with past medical history cigar for diabetes mellitus type 2 presenting with redness and swelling involving the right lower leg. An assessment of cellulitis with abscess made. Patient had incision and drainage performed in the emergency department cultures sent and patient adm itted to regular nursing floor for further management 1. Right lower extremity cellulitis with abscess Enterobacter cloacae complex: Patient admitted to regular nursing floor was started on doxycycline and switched to Rocephin. Wound cultures sent came back positive for Enterobacter cloacae complex. A rapid MRSA screen was ordered (came back negative). Consultation placed to infectious disease jennifer discussed antibiotic treatment on discharge with him patient was discharged home on Cipro 500 mg p.o. BID for 5 days and was discharged home with home health care for wound dressing/teaching 2. Acute renal insufficiency present on admission managed with IV fluids resolved 3. Diabetes on oral home meds held placed on long-acting insulin with sliding scale coverage 4. Hypertension-blood pressure controlled, home medications continued with dose adjustment as needed 5. Paroxysmal A. fib with previous cardioversion 6. Dyslipidemia-patient is on statin therapy, continued at home dose 7. Morbid obesity with BMI of 48.2 weight loss advised 9. 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 DVT: Lovenox Microbiology 11/13/18 10:07 Gram Stain - Final Tissue - Knee Wound Culture - Final Enterobacter cloacae complex Patient Problems: Active and Suspected Problems Cellulitis and abscess of lower extremity (Acute) - Physical Exam General: Alert HEENT: Atraumatic Oral: Moist Mucosa Lungs: Diminished Cardiovascular: Regular rate, Regular Rhythm Neurological: Neuro grossly intact Vital Signs Temp Pulse Resp BP Pulse Ox 97.8 F 66 18 133/74 H 97 11/15/18 07:53 11/15/18 07:53 11/15/18 07:53 11/15/18 07:53 11/15/18 07:53 Oxygen Delivery Method Room Air Weight: 156.6 kg Body Mass Index (BMI) 48.1 Intake and Output for Last 24 Hours 11/13/18 11/14/18 11/15/18 23:59 23:59 23:59 Intake Total 1100 / 1100 471 / 471 Output Total 2475 / 2475 475 / 475 Balance -1375 / -1375 -4 / -4 Microbiology Past 72 Hours 11/13/18 10:07 Gram Stain - Final Tissue - Knee Wound Culture - Final Enterobacter cloacae complex Laboratory Tests Past 24 Hrs 11/14/18 08:45 S.aureus Protein A PCR NEGATIVE MRSA (PCR) Negative POC Glucose 11/15/18 11/14/18 11/14/18 06:22 22:31 16:55 POC Glucose 163 H 143 H 137 H 11/14/18 11/14/18 12:02 06:02 POC Glucose 203 H 155 H Discharge Diet: 1800 Calorie Control Diet Discharge Activity: Return to Normal Activity Home Medications: Medications to take at Discharge Ascorbic Acid [Vitamin C] 500 mg PO DAILY 11/13/18 Aspirin E.C. [Ecotrin] 81 mg PO DAILY@0800 11/13/18 Calcium Polycarbophil [Fiber Tabs] 625 mg PO 11/13/18 Carvedilol 25 mg PO BID 11/13/18 Diltiazem HCl [Diltiazem 24Hr ER] 240 mg PO DAILY 11/13/18 Losartan/Hydrochlorothiazide [Losartan-Hctz 100-12.5 mg Tab] 1 each PO DAILY 11/13/18 Magnesium 250 mg PO DAILY 11/13/18 Metformin HCl [Metformin ER Osmotic] 1,000 mg PO BID 11/13/18 Multivitamin [Multiple Vitamins] 1 each PO DAILY 11/13/18 Piaglitazone 30 mg PO DAILY 11/13/18 Pravastatin [Pravachol] 20 mg PO QHS 11/13/18 Zinc 50 mg PO DAILY 11/13/18 Ciprofloxacin [Cipro] 500 mg PO BID #10 tablet 11/15/18 Following Prescrptions Were Given to Patient: Ciprofloxacin [Cipro] 500 mg PO BID #10 tablet Primary Care Physician: Francisco Doctor,Out of [Primary Care Provider] - Please follow up with your Primary Care Physician in: in 5-7 days Disposition: Home with Home Health Minutes spent on discharge:: 35 Patient Condition:: Stable Medical Necessity - Tobacco Use Smoking Status: Never smoker Meaningful Use Info Meaningful Use Diagnoses (Choose all that apply): None applicable Code Visit Inpatient E&M: 73523 Disch Hosp
[2018-11-15] MEDS: hydroCHLOROthiazide 12.5mg 12.5 MG PO (09:22)
[2018-11-15] MEDS: Carvedilol 25 MG Tablet PO (09:22)
[2018-11-15] MEDS: Ascorbic Acid 500 MG Tablet PO (09:22)
[2018-11-15] MEDS: Losartan Potassium 100 MG Tablet PO (09:23)
[2018-11-15] MEDS: dilTIAZem CD 240 MG Capsule PO (09:23)
[2018-11-15] MEDS: Enoxaparin 40 MG/0.4 ML Syringe SC (09:26)
--- NOTE | 2018-11-15 09:30 | CASEMGMT ---
ROJELIO PECK received update from hospitalist that patient is requesting HHC for at discharge. ROJELIO PECK in to discuss HHC with patient and would prefer [facility]. RN CISCO sent referral to [facility] and they are able to accept the patient. ROJELIO PECK updated patient. CM will continue to follow this patient and plan for a safe discharge.
--- NOTE | 2018-11-15 10:42 | PCM.PN.ID ---
Patient Problems: Active and Suspected Problems Cellulitis and abscess of lower extremity (Acute) Subjective: Feeling better, leg improved, no fever - Physical Exam General: Alert, Cooperative, No apparent distress Lungs: Clear to auscultation, Normal air movement Cardiovascular: Regular rate, Regular Rhythm Abdomen: Soft, Non Tender, Non-Distended Skin: Ulcer/ Wound - R knee much improved pain/swelling/redness Vital Signs Temp Pulse Resp BP Pulse Ox 97.8 F 66 18 133/74 H 97 11/15/18 07:53 11/15/18 07:53 11/15/18 07:53 11/15/18 07:53 11/15/18 07:53 Oxygen Delivery Method Room Air Weight: 156.6 kg Body Mass Index (BMI) 48.1 Intake and Output for Last 24 Hours 11/13/18 11/14/18 11/15/18 23:59 23:59 23:59 Intake Total 1100 / 1100 471 / 471 Output Total 2475 / 2475 475 / 475 Balance -1375 / -1375 -4 / -4 Microbiology Past 72 Hours 11/13/18 10:07 Gram Stain - Final Tissue - Knee Wound Culture - Final Enterobacter cloacae complex Laboratory Tests Past 24 Hrs 11/14/18 08:45 S.aureus Protein A PCR NEGATIVE MRSA (PCR) Negative POC Glucose 11/15/18 11/14/18 11/14/18 06:22 22:31 16:55 POC Glucose 163 H 143 H 137 H 11/14/18 11/14/18 12:02 06:02 POC Glucose 203 H 155 H Medical Necessity - Tobacco Use Smoking Status: Never smoker Route of nutrition/ use of supplements: [] Nutritional Intake: [] IV Site: [] Lopez Catheter: [] - Assessment/Plan Antibiotics: [] Assessment/Plan: [] Active and Suspected Problems Cellulitis and abscess of lower extremity (Acute) R anterior knee abscess - cx with enterobacter. Much improved. Ok for d/c home on 5 days delfina with PCP followup. Will follow, d/w Dr. Green
== END 2018-11-15 11:47 | disposition home health service (06) | DRG 603 ==
LOC: ED 09:51 → MS3 11-14 00:54
PROVIDERS: Admitting Provider Family Medicine; Emergency Provider Emergency Medicine; Visit Provider Internal Medicine
DX: L02.415 Cutaneous abscess of right lower limb (principal); Z68.42 Body mass index [BMI] 45.0-49.9, adult; E66.01 Morbid (severe) obesity due to excess calories; L03.115 Cellulitis of right lower limb; B96.89 Other specified bacterial agents as the cause of diseases classified elsewhere; E11.9 Type 2 diabetes mellitus without complications; I10 Essential (primary) hypertension; E78.5 Hyperlipidemia, unspecified; N28.9 Disorder of kidney and ureter, unspecified; Z79.84 Long term (current) use of oral hypoglycemic drugs; Z89.431 Acquired absence of right foot
CPT/HCPCS: 36415; 80048; 80053; 82962; 85025; 87040; 87070; 87077; 87186; 87205; 87640; 97802; 99284; J7050; A4216

== ENCOUNTER 2018-11-30 18:09 | Emergency (ER) | payer MEDICARE, BC, SELFPAY ==
[2018-11-30 18:10] VITALS: BP 188/77; PULSE 79; RESP 18; TEMP 36.5; O2SAT 97; BMI 44.6
[2018-11-30 18:20] VITALS: BP 178/85; PULSE 83; RESP 15; O2SAT 98
--- NOTE | 2018-11-30 18:32 | ED.VISSUMM ---
- ER Visit Summary Date of Service: 11/30/18 Chief Complaint: Right lower leg wound redness History of Present Illness: The patient is a 63 M history of [id number] diabetes, anemia and A. fib. Currently not on blood thinners. Recent lower leg abscess that was incised and drained. He was hospitalized and recent of antibiotics. States she was doing well. Today he noticed more redness. Called the office of his hog dropper who sent him into the ER to be evaluated. He denies any fever or chills. He denies any worsening pain. States he is able to ambulate. Physical Examination: Well-appearing older male. No acute distress. Vital signs are stable. Afebrile. He does not look septic or toxic. H EENT exam unremarkable. Neck nontender. Lungs clear to auscultation bilaterally. Heart regular rhythm no murmur. Abdomen soft nontender. Patient moving all 4 extremities. Normal integrated logistics programs director strength. Normal dorsi plantar flexion. Just below his knee on his proximal tibia anteriorly there is a small wound and were able to express cloudy liquid discharge that is puslike. Consistent with infection. No significant cellulitis. No significant tenderness. No streaking. The knee is not swollen or tender. He has normal flexion-extension. Distally his right foot is neurovascularly intact. He does have chronic edema both lower extremities. Neurologically is awake and alert with no focal motor deficits. Test Results: Wound cultures were obtained of the discharge from the right lower extremity wound. Emergency Department Course and Treatment: Right lower leg incision and drainage of an abscess. Let to the area. Local lidocaine. 1 inch horizontal incision. I probed the wound with forceps. Was able to express cloudy puslike liquid but it was not thick. Probed with forceps. Placed quarter inch gauze packing. Explained to patient wound care. He will be dressed in discharge. Treatment Plan: First dose of Keflex in the ER. Keflex 4 times a day for 10 days. I did review his most recent wound cultures and they were sensitive to cephalosporins. And most antibiotics. Disposition: Discharge Impression: Recurrent right lower leg abscess I&D by ER History of diabetes This note was generated with [employer] dictation software. It may contain incorrect words, spelling, and punctuation that were not noted in review of the chart prior to signing ED Disposition - Plan for ED Patient: Referrals: [facility] Doctor,Out of [Primary Care Provider] -
--- NOTE | 2018-11-30 18:37 | ED.DCSUM_ITS ---
- ER Visit Summary Date of Service: 11/30/18 Chief Complaint: Right lower leg wound redness History of Present Illness: The patient is a 63 M history of [id number] diabetes, anemia and A. fib. Currently not on blood thinners. Recent lower leg abscess that was incised and drained. He was hospit alized and recent of antibiotics. States she was doing well. Today he noticed more redness. Called the office of his clerical warehouseman who sent him into the ER to be evaluated. He denies any fever or chills. He denies any worsening pain. States he is able to ambulate. Physical Examination: Well-appearing older male. No acute distress. Vital signs are stable. Afebrile. He does not look septic or toxic. H EENT exam unremarkable. Neck nontender. Lungs clear to auscultation bilaterally. Heart regular rhythm no murmur. Abdomen soft nontender. Patient moving all 4 extr emities. Normal validation software facilitator strength. Normal dorsi plantar flexion. Just below his knee on his proximal tibia anteriorly there is a small wound and were able to express cloudy liquid discharge that is puslike. Consistent with infection. No significant cellulitis. No significant tenderness. No streaking. The knee is not swollen or tender. He has normal flexion-extension. Distally his right foot is neurovascularly intact. He does have chronic edema both lower extremities. Neurologically is awake and alert with no focal motor deficits. Test Results: Wound cultures were obtained of the discharge from the right lower extremity wound. Emergency Department Course and Treatment: Right lower leg incision and drainage of an abscess. Let to the area. Local lidocaine. 1 inch horizontal incision. I probed the wound with forceps. Was able to express cloudy puslike liquid but it was not thick. Probed with forceps. Placed quarter inch gauze packing. Explained to patient wound care. He will be dressed in discharge. Treatment Plan: First dose of Keflex in the ER. Keflex 4 times a day for 10 days. I did review his most recent wound cultures and they were sensitive to cephalosporins. And most antibiotics. Disposition: Discharge Impression: Recurrent right lower leg abscess I&D by ER History of diabetes This note was generated with [employer] dictation software. It may contain incorrect words, spelling, and punctuation that were not noted in review of the chart prior to signing ED Disposition - Plan for ED Patient: Referrals: [facility] Doctor,Out of [Primary Care Provider] -
[2018-11-30] MEDS: Lidocaine/Epi/Tetracaine 50 ML 1 APPLIC TOPICAL (19:20)
[2018-11-30 19:28] VITALS: BP 161/72; PULSE 78; RESP 16; TEMP 36.7; O2SAT 97
--- NOTE | 2018-11-30 19:59 | ED.DEP ---
ED Disposition - Plan for ED Patient: Disposition: Home or Assisted Living Instructions: ED Abscess IandD Prescriptions: Cephalexin [Keflex] 500 mg PO Q6 10 Days cap Referrals: [facility] Doctor,Out of [Primary Care Provider] - Keep Vel appointment Additional Instructions: Follow-up your rotary adjuster in [place] next week with your scheduled appointment. Dressing changes either daily or every other day. Return if fever or red streaks up your leg. Keflex 1 pill 4 times a day for the next 10 days.
--- NOTE | 2018-11-30 20:02 | DCINST.ED_ITS ---
ED Disposition - Plan for ED Patient: Disposition: Home or Assisted Living Instructions: ED Abscess IandD Prescriptions: Cephalexin [Keflex] 500 mg PO Q6 10 Days cap Referrals: [facility] Doctor,Out of [Primary Care Provider] - Keep Vel appointment Additional Instructions: Follow-up your [facility] specialist in [place] next week with your scheduled appointment. Dressing changes either daily or every other day. Return if fever or red streaks up your leg. Keflex 1 pill 4 times a day for the next 10 days.
[2018-11-30 20:11] LABS: M R Staph aureus DNA By PCR Negative (Negative); Probe Check PASS; Specimen Processing Control PASS; Staph aureus DNA By PCR NEGATIVE (Negative)
[2018-11-30] MEDS: Cephalexin 250 MG Capsule 500 MG PO (20:15)
[2018-11-30 20:33] VITALS: BP 161/90; PULSE 79; RESP 18; O2SAT 96
== END 2018-11-30 20:34 | disposition home or self-care (01) ==
PROVIDERS: Emergency Provider Emergency Medicine
DX: L02.415 Cutaneous abscess of right lower limb (principal); E11.9 Type 2 diabetes mellitus without complications; I10 Essential (primary) hypertension
CPT/HCPCS: 10060; 87070; 87075; 87077; 87186; 87205; 87640; 99284